=== PATIENT | male | born 1950 | race Caucasian/White ===

== ENCOUNTER 2023-01-09 05:18 | Observation (INO) | payer MEDICARE ==
[2023-01-09 05:54] LABS: #Basophils 0.1 10x3/uL (0.0-0.2); #Eosinphils 0.3 10x3/uL (0.0-0.5); #Monocytes 0.7 10x3/uL (0.0-1.1); #Neutrophils 3.6 10x3/uL (1.5-8.4); %Basophils 0.8 % (0.0-2.0); %Eosinophils 4.7 % (0.0-6.0); %Lymphocytes 23.7 % (18.0-47.0); %Monocytes 10.6 % (0.0-10.0); %Neutrophils 59.7 % (40.0-75.0); Hematocrit 41.8 % (38.8-50.0); Hemoglobin 14.2 g/dL (13.5-17.5); Mean Corpuscular Hemoglobin 33.1 pg (27.0-33.0); Mean Corpuscular Volume 97.4 fl (81.2-95.1); Mean Platelet Volume 10.5 fl (7.4-10.4); Platelet Count 148 10x3/uL (150-450); RBC Distribution Width 12.7 % (11.5-14.5); Red Blood Cell (RBC) Count 4.29 10x6/uL (4.32-5.72); White Blood Cell (WBC) Count 6.1 10x3/uL (3.5-10.5)
[2023-01-09 05:59] LABS: ALT (SGPT) 18 U/L (8-55); AST (SGOT) 16 U/L (5-34); Albumin 4.3 g/dL (3.4-4.8); Alkaline Phosphatase 55 U/L (40-110); Anion Gap 12 mmol/L (10-20); BUN (Urea Nitrogen) 27 mg/dL (8.4-25.7); Bilirubin, Total 0.6 mg/dL (0.2-1.2); Calc. Creatinine Clearance 0 mL/min (70-130); Calcium 9.3 mg/dL (7.8-10.44); Carbon Dioxide 24 mmol/L (23-31); Chloride 108 mmol/L (98-107); Estimated GFR 39; Globulin 1.7 g/dL (2.4-3.5); Glucose 103 mg/dL (83-110); Potassium 4.5 mmol/L (3.5-5.1); Sodium 139 mmol/L (136-145)
[2023-01-09] MEDS ORDERED: Meclizine HCl 25 MG TAB ONE (06:11)
[2023-01-09 07:29] LABS: Bilirubin Neg (Negative); Blood, Urine Negative (Negative); Clarity Clear (Clear); Glucose, Urine (Dipstick) Normal (Negative); Ketone, Urine Negative (Negative); Leukocyte Negative (Negative); Nitrite Negative (Negative); Protein, Urine (Dipstick) Negative (Neg-Trace); Urobilinogen Normal mg/dL (Less than 2)
[2023-01-09] MEDS ORDERED: Lorazepam 2 MG/ML VIAL ONE (07:48)
[2023-01-09 07:55] LABS: Bacteria/HPF None Seen HPF (None Seen); CAUTI Indications for Culture Dysuria,urgency,freq; RBC/HPF 0-3 HPF (0-3); Squamous Epithelial None Seen HPF (0-3); WBC/HPF None Seen HPF (0-3)
[2023-01-09 07:57] LABS: Urine Culture Reflex No No
[2023-01-09] MEDS ORDERED: Aspirin Chewable 81 MG TAB ONE (09:10)
[2023-01-09] MEDS ORDERED: Labetalol HCl 100 MG/20 ML VIAL SLOW IVP PRN (09:58)
[2023-01-09] MEDS ORDERED: Sodium Chloride 0.65% Nasal 44 ML BOT EA NARE PRN (10:09)
[2023-01-09] MEDS ORDERED: Bisacodyl 5 MG TAB PO PRN (10:09)
[2023-01-09] MEDS ORDERED: Senokot S 8.6-50 MG TAB PO PRN (10:09)
[2023-01-09] MEDS ORDERED: Zolpidem Tartrate 5 MG TAB PO PRN (10:09)
[2023-01-09] MEDS ORDERED: Acetaminophen 650 MG Suppository PR PRN (10:09)
[2023-01-09] MEDS ORDERED: Calcium Carbonate 500 MG ChewTAB PO PRN (10:09)
[2023-01-09] MEDS ORDERED: Artificial Tear Sol 15 ML BOT EA EYE PRN (10:09)
[2023-01-09] MEDS ORDERED: Ondansetron ODT 4 MG TAB PO PRN (10:09)
[2023-01-09] MEDS ORDERED: Ondansetron PF 4 MG/2 ML Vial IVP PRN (10:09)
[2023-01-09] MEDS ORDERED: Acetaminophen 325 MG TAB PO PRN (10:09)
[2023-01-09] MEDS ORDERED: Moisturizing Cream (Eucerin) 113 GM JAR TOP PRN (10:09)
[2023-01-09] MEDS ORDERED: Iopamidol 370 76% 100 ML VIAL ONE (10:49)
[2023-01-09 11:58] VITALS: BMI 34.5
[2023-01-09] MEDS: Meclizine HCl 25 MG TAB PO SCH ×2 (14:30→21:49)
[2023-01-09] MEDS ORDERED: [UNRECOGNIZED DRUG - REMARK] IVPB PRN (18:40)
[2023-01-09] MEDS ORDERED: Atorvastatin Calcium 40 MG TAB PO SCH (21:00)
[2023-01-09] MEDS ORDERED: Pregabalin 50 MG CAP PO SCH ×4 (21:00→22:45)
[2023-01-09] MEDS ORDERED: Pregabalin 75 MG CAP PO SCH (21:00)
[2023-01-09] MEDS ORDERED: Ezetimibe 10 MG TAB PO SCH (21:00)
[2023-01-09] MEDS ORDERED: Tamsulosin HCl 0.4 MG CAP PO SCH (21:00)
[2023-01-09] MEDS ORDERED: Losartan 25 MG TAB PO SCH (22:30)
[2023-01-09] MEDS ORDERED: LYRICA 75 MG PO SCH (22:30)
[2023-01-10 05:42] LABS: Anion Gap 14 mmol/L (10-20); BUN (Urea Nitrogen) 25 mg/dL (8.4-25.7); Calc. Creatinine Clearance 69 mL/min (70-130); Calcium 8.9 mg/dL (7.8-10.44); Carbon Dioxide 23 mmol/L (23-31); Cardiac Risk 4.5 (Less than 4.5); Chloride 108 mmol/L (98-107); Cholesterol 186 mg/dl (< 200 Desired); Estimated GFR 48; Glucose 96 mg/dL (83-110); HDL Cholesterol 41 mg/dL (>60 Neg Risk); LDL Cholesterol, Calculated 128 mg/dL; Potassium 4.3 mmol/L (3.5-5.1); Sodium 141 mmol/L (136-145); Triglycerides 84 mg/dL (Less than 150)
[2023-01-10] MEDS: Meclizine HCl 25 MG TAB PO SCH (06:18)
[2023-01-10 08:55] VITALS: TEMP 98
[2023-01-10] MEDS ORDERED: Tamsulosin HCl 0.4 MG CAP PO SCH (09:00)
[2023-01-10] MEDS ORDERED: Pregabalin 75 MG CAP PO SCH ×2 (09:00→21:00)
[2023-01-10] MEDS ORDERED: Ezetimibe 10 MG TAB PO SCH (09:00)
[2023-01-10] MEDS ORDERED: Aspirin 81 mg Enteric Coated Tablet PO SCH (09:00)
[2023-01-10] MEDS ORDERED: Losartan Potassium 50 MG TAB PO SCH (09:00)
[2023-01-10] MEDS ORDERED: Allopurinol 300 MG TAB PO SCH (09:00)
[2023-01-10] MEDS ORDERED: Meloxicam 7.5 MG TAB PO SCH (09:00)
[2023-01-10] MEDS ORDERED: BuPROPion XL 150 MG ER.TAB PO SCH (09:00)
[2023-01-10] MEDS ORDERED: LOSARTAN 50 MG PO SCH (09:00)
[2023-01-10 11:21] VITALS: BP 160/88
[2023-01-10 17:19] LABS: Hemoglobin A1c 5.4 % (4.0-6.0)
[2023-01-10] MEDS ORDERED: EZETIMIBE 10 MG PO SCH (21:00)
[2023-01-10] MEDS ORDERED: LYRICA 75 MG PO SCH (21:00)
[2023-01-10] MEDS ORDERED: ALLOPURINOL 300 MG PO SCH (21:00)
[2023-01-10] MEDS ORDERED: Zolpidem Tartrate 5 MG TAB PO SCH (21:00)
== END 2023-01-10 10:00 | disposition home or self-care (01) ==
LOC: CSHERS 05:18 → CSHTELE 09:37
PROVIDERS: ADMIT Family Medicine; ATTEND Family Medicine
DX: H81.10 Benign paroxysmal vertigo, unspecified ear (principal); I12.9 Hypertensive chronic kidney disease with stage 1 through stage 4 chronic kidney disease, or unspecified chronic kidney disease; N18.30 Chronic kidney disease, stage 3 unspecified; E78.5 Hyperlipidemia, unspecified; G47.33 Obstructive sleep apnea (adult) (pediatric); I08.1 Rheumatic disorders of both mitral and tricuspid valves; M19.90 Unspecified osteoarthritis, unspecified site; Z87.891 Personal history of nicotine dependence; Z79.1 Long term (current) use of non-steroidal anti-inflammatories (NSAID); Z79.899 Other long term (current) drug therapy; Z91.030 Bee allergy status; Z91.041 Radiographic dye allergy status
CPT/HCPCS: 70450; 70496; 70551; 71045; 80048; 80053; 80061; 81001; 83036; 83880; 84484; 85025; 85379; 93005; 93306; 94660; 96361; 96374; 99285; G0378 ×3; 36415; J2060; Q9967